=== PATIENT | male | born 2000 | race Hispanic/Latino ===

== ENCOUNTER 2019-05-02 22:35 | Emergency (ER) | payer SELFPAY ==
[2019-05-02] MEDS ORDERED: Lidocaine 1% w/Epinephrine 1:100K 20 ML VIAL ONE (22:54)
== END 2019-05-02 23:20 | disposition home or self-care (01) ==
LOC: ERS 22:35
DX: L05.01 Pilonidal cyst with abscess (principal)
CPT/HCPCS: 10080; J2001

== ENCOUNTER 2019-05-04 20:16 | Emergency (ER) | payer SELFPAY | END 2019-05-04 21:38 | disposition home or self-care (01) | LOC: ERS 20:16 | DX: Z48.817 Encounter for surgical aftercare following surgery on the skin and subcutaneous tissue (principal); Z79.899 Other long term (current) drug therapy | CPT/HCPCS: 99282 ==

== ENCOUNTER 2020-06-16 17:37 | Emergency (ER) | payer OTHER, SELFPAY ==
[2020-06-17 14:29] LABS: SARS-CoV-2 MS2 Positive; SARS-CoV-2 N Gene Positive; SARS-CoV-2 S Gene Positive; SARS-CoV-2 by NAA DETECTED (NotDetected); SARS-CoV-2 orf1ab Positive
== END 2020-06-16 17:51 | disposition home or self-care (01) ==
LOC: ERS 17:37
DX: U07.1 COVID-19 (principal)
CPT/HCPCS: 87635; 99283; U0003

== ENCOUNTER 2023-01-02 20:46 | Emergency (ER) | payer SELFPAY ==
[2023-01-02] MEDS ORDERED: Ketorolac Tromethamine 30 MG/ML VIAL ONE (22:07)
[2023-01-02] MEDS ORDERED: Lidocaine 1% PF 5 ML VIAL ONE (22:15)
[2023-01-02] MEDS ORDERED: Bupivacaine 0.25% 10 ML VIAL ONE (22:15)
== END 2023-01-02 23:33 | disposition home or self-care (01) ==
LOC: ERS 20:46
DX: S62.326A Displaced fracture of shaft of fifth metacarpal bone, right hand, initial encounter for closed fracture (principal); W22.8XXA Striking against or struck by other objects, initial encounter; Y93.H3 Activity, building and construction
CPT/HCPCS: 26600; 96372; J1885; S0020